=== PATIENT | female | born 1995 | race Two or more races ===

== ENCOUNTER 2019-08-24 11:23 | Inpatient (IN) | payer SELFPAY ==
[~2019-08-24] VITALS: Ht 170.2 cm; Wt 96.0 kg
[2019-08-24] MEDS ORDERED: IV NORMAL SALINE 1000ML BAG 1,000 ML IV SCH (11:43)
[2019-08-24] MEDS ORDERED: fentaNYL PF VIAL 100 MCG/2 ML VIAL IVP ONE (11:45)
[2019-08-24] MEDS ORDERED: ACETAMINOPHEN 500 MG TABLET PO ONE (11:45)
[2019-08-24] MEDS ORDERED: ONDANSETRON PF 4 MG/2 ML VIAL. IVP ONE (11:45)
--- NOTE | 2019-08-24 11:46 | PHYS DOC ---
General Adult EDM: Chief Complaint: FEVER HPI: HPI: Patient is a 23 year old female who presents with 2 days of nausea, vomiting, body aches, fever and shortness of air. She does have a low-grade fever of 100.1 upon arrival. She states she cannot keep anything down. She states she took DayQuil early this morning. She rates her pain generalized 5 out of 10. Patient also has a headache. When looking in the back of her throat upon exam she has yeast under her tongue. She states she is diabetic and has not been taking medications because she does not have insurance. Review of Systems: Review of Systems: Constitutional: fever or chills. [] Respiratory: Denies cough. +shortness of breath. [] GI: abdominal pain, nausea, vomiting, denies bloody stools. +diarrhea. [] Musculoskeletal: Bodyaches. Denies back pain or joint pain. [] Neurologic: headache, denies focal weakness or sensory changes. [] Heart Score: Risk Factors: Risk Factors: DM, Current or recent (<one month) smoker, HTN, HLP, family history of CAD, obesity. Risk Scores: Score 0 - 3: 2.5% MACE over next 6 weeks - Discharge Home Score 4 - 6: 20.3% MACE over next 6 weeks - Admit for Clinical Observation Score 7 - 10: 72.7% MACE over next 6 weeks - Early Invasive Strategies Allergies: Allergies: Allergies Coded Allergies Type Severity Reaction Last Updated Verified No Known Drug Allergies 08/24/19 No Physical Exam: PE: Constitutional: Well developed, well nourished, no acute distress, non-toxic appearance. [] HENT: Normocephalic, atraumatic, bilateral external ears normal, oropharynx moist, no oral exudates, nose normal. Yeast on tongue. [] Eyes: PERRLA, EOMI, conjunctiva normal, no discharge. [] Neck: Normal range of motion, no tenderness, supple, no stridor. [] Cardiovascular:Heart rate regular rhythm, no murmur [] Lungs & Thorax: Bilateral breath sounds clear to auscultation [] Abdomen: Bowel sounds normal, soft, Left upper tenderness, no masses, no pulsatile masses. [] Skin: Warm, dry, no erythema, no rash. [] Back: No tenderness, no CVA tenderness. [] Extremities: No tenderness, no cyanosis, no clubbing, ROM intact, no edema. [] Neurologic: Alert and oriented X 3, normal motor function, normal sensory function, no focal deficits noted. [] Psychologic: Affect normal, judgement normal, mood normal. [] EKG: EKG: Sinus tachycardia and no STEMI read by Dr. Hi at 1154 [] Radiology/Procedures: Radiology/Procedures: [] Impression: [place] [address] IMAGING REPORT Signed PATIENT: CARLOS JENKINS ACCOUNT: [id number] : 1995 LOCATION: ER AGE: 23 SEX: F EXAM STATUS: REG ER ORD. PHYSICIAN: ELEONORA DINH APRN REASON: soa PROCEDURE: PORTABLE CHEST 1V PORTABLE CHEST 1V History: Reason: soa / Spl. Instructions: / History: Comparison: None. Findings: No consolidation or pleural effusion. Normal heart size. No pneumothorax. Impression: 1. No acute cardiopulmonary process. Electronically signed by: Julian Pierce DO (08/24/2019 12:53 PM) [id number] DICTATED and SIGNED BY: JULIAN PIERCE DO DATE: 08/24/[address] [address] IMAGING REPORT Signed PATIENT: CARLOS JENKINS ACCOUNT: [id number] : 1995 LOCATION: ER AGE: 23 SEX: F EXAM STATUS: REG ER ORD. PHYSICIAN: ELEONORA DINH APRN REASON: abdominal tenderness, vomiting, diarrhea, fever PROCEDURE: CT ABD PELV W/ IV CONTRST ONLY CT scan of the abdomen and pelvis with contrast 08/24/2019 CLINICAL HISTORY: Abdominal tenderness, vomiting, diarrhea and fever. TECHNIQUE: After the intravenous administration of 75 cc of Omnipaque 300, contiguous, 5 mm axial sections were obtained through the abdomen and pelvis. One or more of the following individualized dose reduction techniques were utilized for this study: 1. Automated exposure control. 2. Adjustment of the mA and/or kV according to patient size. 3. Use of iterative reconstruction technique. FINDINGS: Images through the lung bases demonstrate minimal dependent subsegmental atelectasis bilaterally. The liver is mildly enlarged measuring 24 cm in length. Decreased attenuation of the liver parenchyma is seen consistent with fatty infiltration. The spleen, pancreas, adrenal glands and kidneys are within normal limits. The abdominal aorta tapers normally. The gallbladder slightly contracted. No free fluid or free air is seen within the abdomen. There is no evidence of bowel obstruction. Images through the pelvis demonstrate the urinary bladder distended with urine. An oval-shaped cystic mass is seen which appears to extend superiorly from the expected location of the right adnexa. This measures 12.2 x 11.1 x 9.2 cm in transverse, craniocaudal and AP dimensions. This may represent a ovarian cyst. No free fluid is seen. Minimal S-shaped curvature of the thoracolumbar spine is seen. IMPRESSION: 12.2 cm cystic mass is seen within the pelvis which appears to extend superiorly from the expected location of the right adnexa. This may represent an ovarian cyst. Further evaluation by pelvic ultrasound is recommended. Electronically signed by: Geradr Flores MD (08/24/2019 1:53 PM) [id number] DICTATED and SIGNED BY: GERARD FLORES MD DATE: 08/24/19 8205 Course & Med Decision Making: Course & Med Decision Making Pertinent Labs and Imaging studies reviewed. (See chart for details) Left upper abdominal tenderness with palpation. Patient states she thinks is from all the vomiting she is been doing. She states she cannot keep anything down. Alert and oriented. Speaks in full clear sentences. Ambulatory with a steady gait. No extremity edema. Lungs are clear to auscultation in all lobes. Throat is pink without exudates or swelling. Patient has had a tonsillectomy. Denies dysuria, cough, numbness or tingling, dizziness, LOC, chest pain, vision changes, focal weakness. COVID-19 CRITERIA: The patient was evaluated during the global COVID-19 pandemic, and that diagnosis was suspected/considered upon their initial presentation. Their evaluation, treatment and testing was consistent with current guidelines for patients who present with complaints or symptoms that may be related to COVID-19. I spoke to Dr. romero about this patient for admission. Patient likely does not have COVID-19 but instead pyelonephritis. Chest x-ray shows no acute findings. Urinalysis shows infection. CT showed a pelvic cystic mass. Ultrasound is ordered. Patient received Rocephin in the ED. [] Dragon Disclaimer: Dragon Disclaimer: This electronic medical record was generated, in whole or in part, using a voice recognition dictation system. COVID-19 Patient Risks: Age 65 or older: No Sign of co-morbidity: Yes Exp to person + for COVID: No Exp to PUI: No Travel from affected area: No Lower respiratory symptoms: Yes Fever: Yes Other: No PPE Use: Full PPE with N95 mask or PAPR: Yes Departure Departure Impression: Primary Impression: Pyelonephritis Disposition: ADMITTED INPATIENT Admitting Physician: SHAYNA Condition: STABLE Justicifation of Admission Dx: Justifications for Admission: Justification of Admission Dx: N/A (PYELONEPHRITIS) ELEONORA DINH FOOD SAFETY AUDITOR Aug 24, 2019 11:46
[2019-08-24 12:09] LABS: BASO # 0.2 x10^3/uL (0.0-0.2); BASO % 1 % (0-3); EOS # 0.1 x10^3/uL (0.0-0.7); EOS % 0 % (0-3); HEMATOCRIT 34.6 % (36.0-47.0); HEMOGLOBIN 11.6 g/dL (12.0-15.5); LYMPH # 1.7 x10^3/uL (1.0-4.8); LYMPH % 11 % (24-48); MEAN CORPUSCULAR HEMOGLOBIN 27 pg (25-35); MEAN CORPUSCULAR HGB CONC 34 g/dL (31-37); MEAN CORPUSCULAR VOLUME 80 fL (79-100); MONO # 2.2 x10^3/uL (0.0-1.1); MONO % 14 % (0-9); NEUT # 11.3 x10^3/uL (1.8-7.7); NEUT % 74 % (31-73); PLATELET COUNT 166 x10^3/uL (140-400); RED BLOOD COUNT 4.32 x10^6/uL (3.50-5.40); RED CELL DISTRIBUTION WIDTH 13.9 % (11.5-14.5); WHITE BLOOD COUNT 15.4 x10^3/uL (4.0-11.0)
[2019-08-24 12:22] LABS: PROTHROMBIN TIME PATIENT 14.8 SEC (11.7-14.0)
[2019-08-24 12:26] LABS: CALCIUM 8.7 mg/dL (8.5-10.1); CREATININE 0.9 mg/dL (0.6-1.0); GFR 78.3; POTASSIUM 3.6 mmol/L (3.5-5.1)
[2019-08-24 12:32] LABS: ALBUMIN/GLOBULIN RATIO 0.6 (1.0-1.7); TOTAL BILIRUBIN 0.5 mg/dL (0.2-1.0); TOTAL PROTEIN 7.8 g/dL (6.4-8.2)
[2019-08-24 12:41] LABS: BILIRUBIN,URINE NEGATIVE (NEG); CLARITY,URINE CLEAR; COLOR,URINE YELLOW; NITRITE,URINE NEGATIVE (NEG); PROTEIN,URINE 100 mg/dL (NEG-TRACE); UROBILINOGEN,URINE 0.2 mg/dL (0.2 mg/dL)
[2019-08-24 12:49] LABS: BARBITURATES NEG (NEG); BENZODIAZEPINES NEG (NEG); CANNABINOIDS POS (NEG); COCAINE NEG (NEG); METHADONE NEG (NEG); OPIATES NEG (NEG); PHENCYCLIDINE NEG (NEG)
[2019-08-24 12:50] LABS: AMPHETAMINE/METHAMPHETAMINE NEG (NEG)
[2019-08-24 12:52] LABS: AMORPHOUS SEDIMENT,UR PRESENT /HPF; HYALINE CASTS, URINE OCCASIONAL /HPF; SQUAMOUS EPITHELIAL CELL,UR MOD /LPF
[2019-08-24 12:54] LABS: BACTERIA,URINE MODERATE /HPF (0-FEW); RBC,URINE OCC /HPF (0-2); WBC,URINE >40 /HPF (0-4)
--- NOTE | 2019-08-24 12:56 | RAD ---
PORTABLE CHEST 1V History: Reason: soa / Spl. Instructions: / History: Comparison: None. Findings: No consolidation or pleural effusion. Normal heart size. No pneumothorax. Impression: 1. No acute cardiopulmonary process. Electronically signed by: Julian Pierce DO (08/24/2019 12:53 PM) [id number]
[2019-08-24 13:00] LABS: % BANDS 7 % (0-9); % BASOS 1 % (0-3); % EOS 2 % (0-5); % LYMPHS 6 % (24-48); % MONOS 11 % (0-10); % SEGS 73 % (35-66); PLT ESTIMATE ADEQUATE (ADEQUATE)
[2019-08-24] MEDS ORDERED: IV NORMAL SALINE 1000ML BAG 1,000 ML IV ONE (13:00)
[2019-08-24] MEDS ORDERED: IOHEXOL 300 MG/ML 100ML VIAL. IV ONE (13:15)
[2019-08-24] MEDS ORDERED: KETOROLAC 30 MG/ML VIAL. IVP ONE (13:15)
[2019-08-24] MEDS ORDERED: cefTRIAXone IV Push 1 GM VIAL. IVP ONE (13:15)
[2019-08-24] MEDS ORDERED: CONTRAST GIVEN. MC PRN (13:30)
--- NOTE | 2019-08-24 13:56 | RAD ---
CT scan of the abdomen and pelvis with contrast 08/24/2019 CLINICAL HISTORY: Abdominal tenderness, vomiting, diarrhea and fever. TECHNIQUE: After the intravenous administration of 75 cc of Omnipaque 300, contiguous, 5 mm axial sections were obtained through the abdomen and pelvis. One or more of the following individualized dose reduction techniques were utilized for this study: 1. Automated exposure control. 2. Adjustment of the mA and/or kV according to patient size. 3. Use of iterative reconstruction technique. FINDINGS: Images through the lung bases demonstrate minimal dependent subsegmental atelectasis bilaterally. The liver is mildly enlarged measuring 24 cm in length. Decreased attenuation of the liver parenchyma is seen consistent with fatty infiltration. The spleen, pancreas, adrenal glands and kidneys are within normal limits. The abdominal aorta tapers normally. The gallbladder slightly contracted. No free fluid or free air is seen within the abdomen. There is no evidence of bowel obstruction. Images through the pelvis demonstrate the urinary bladder distended with urine. An oval-shaped cystic mass is seen which appears to extend superiorly from the expected location of the right adnexa. This measures 12.2 x 11.1 x 9.2 cm in transverse, craniocaudal and AP dimensions. This may represent a ovarian cyst. No free fluid is seen. Minimal S-shaped curvature of the thoracolumbar spine is seen. IMPRESSION: 12.2 cm cystic mass is seen within the pelvis which appears to extend superiorly from the expected location of the right adnexa. This may represent an ovarian cyst. Further evaluation by pelvic ultrasound is recommended. Electronically signed by: Gerard Flores MD (08/24/2019 1:53 PM) [id number]
[2019-08-24] MEDS ORDERED: fentaNYL PF VIAL 100 MCG/2 ML VIAL IV PRN (14:45)
--- NOTE | 2019-08-24 15:13 | RAD ---
PELVIS COMPLETE History: Abdominal pain. Reason: MASS FOUND ON CT / Spl. Instructions: / History: Comparison: CT August 24, 2019. Technique: Grayscale and color Doppler imaging of the pelvis was performed using transabdominal and transvaginal technique. Findings: The uterus measures 8.2 x 4.6 x 3.0 cm. Uterus has an unremarkable appearance. The endometrial stripe measures 4 mm. Right ovary measures 3.8 x 2.9 x 2.0 cm. Large right exophytic ovarian cyst measures 11.1 x 8.8 x 11.5 cm. Left ovary measures 3.2 x 1.8 x 2.1 cm. Normal Doppler flow to the ovaries. No adnexal masses are seen. IMPRESSION: 1. Large right ovarian simple appearing cyst. Recommend further imaging with MRI and/or surgical evaluation given size. Electronically signed by: Julian Pierce DO (08/24/2019 3:10 PM) [id number]
[2019-08-24] MEDS: IV NORMAL SALINE 1000ML BAG 1,000 ML IV SCH ×2 (15:17→23:43)
[2019-08-24] MEDS ORDERED: DEXTROSE 50% 25 GM / 50ML DISP.SYRIN. IV PRN (17:00)
[2019-08-24 17:05] VITALS: BP 149/95
--- NOTE | 2019-08-24 17:29 | PDOC1 ---
History and Physical Date of Admission Date of Admission DATE: 08/24/19 TIME: 17:20 Source Source: Chart review, Patient History of Present Illness History of Present Illness Ms Vidal, is a 23 year old female who presents with 2 days of nausea, vomiting, body aches, fever and shortness of air. She does have a low-grade fever of 100.1 upon arrival. She states she cannot keep anything down. She states she took DayQuil early this morning. She rates her pain generalized 5 out of 10. Patient also has a headache. When looking in the back of her throat upon exam she has yeast under her tongue. She states she is diabetic and has not been taking medications because she does not have insurance. Past Medical History Cardiovascular: No pertinent hx Pulmonary: No pertinent hx GI: No pertinent hx Heme/Onc: No pertinent hx Musculoskeletal: low back pain Rheumatologic: No pertinent hx Infectious disease: No pertinent hx Family History Family History: Diabetes Social History Smoke: No ALCOHOL: none Drugs: None Current Medications Current Medications Current Medications Sodium Chloride 1,000 ml @ 1,000 mls/hr Q1H IV Last administered on 08/24/19at 12:06; Start 08/24/19 at 11:43; Stop 08/24/19 at 12:42; Status DC Fentanyl Citrate (Fentanyl 2ml Vial) 50 mcg 1X ONCE IVP Last administered on 08/24/19at 12:07; Start 08/24/19 at 11:45; Stop 08/24/19 at 11:48; Status DC Ondansetron HCl (Zofran) 4 mg 1X ONCE IVP Last administered on 08/24/19at 12:06; Start 08/24/19 at 11:45; Stop 08/24/19 at 11:48; Status DC Acetaminophen (Tylenol) 1,000 mg 1X ONCE PO Last administered on 08/24/19at 12:07; Start 08/24/19 at 11:45; Stop 08/24/19 at 11:48; Status DC Sodium Chloride 1,000 ml @ 1,000 mls/hr 1X ONCE IV Last administered on 08/24/19at 12:57; Start 08/24/19 at 13:00; Stop 08/24/19 at 13:59; Status DC Ceftriaxone Sodium (Rocephin) 1 gm 1X ONCE IVP Last administered on 08/24/19at 13:18; Start 08/24/19 at 13:15; Stop 08/24/19 at 13:16; Status DC Ketorolac Tromethamine (Toradol 30mg Vial) 30 mg 1X ONCE IVP Last administered on 08/24/19at 13:18; Start 08/24/19 at 13:15; Stop 08/24/19 at 13:16; Status DC Iohexol (Omnipaque 300 Mg/ml) 100 ml 1X ONCE IV Last administered on 08/24/19at 13:34; Start 08/24/19 at 13:15; Stop 08/24/19 at 13:16; Status DC Info (CONTRAST GIVEN -- Rx MONITORING) 1 each PRN DAILY PRN MC SEE COMMENTS; Start 08/24/19 at 13:30; Stop 08/26/19 at 13:29 Ondansetron HCl (Zofran) 4 mg PRN Q8HRS PRN IV NAUSEA/VOMITING; Start 08/24/19 at 14:45; Stop 08/25/19 at 14:44 Fentanyl Citrate (Fentanyl 2ml Vial) 50 mcg PRN Q1HR PRN IV PAIN; Start 08/24/19 at 14:45; Stop 08/25/19 at 14:44 Sodium Chloride 1,000 ml @ 125 mls/hr Q8H IV Last administered on 08/24/19at 15:17; Start 08/24/19 at 14:45; Stop 08/25/19 at 14:44 Acetaminophen (Tylenol) 650 mg PRN Q4HRS PRN PO FEVER > 100.3'F; Start 08/24/19 at 14:45; Stop 08/25/19 at 14:44 Insulin Human Lispro (HumaLOG) 0-7 UNITS TIDWMEALS SQ ; Start 08/24/19 at 17:00 Dextrose (Dextrose 50%-Water Syringe) 12.5 gm PRN Q15MIN PRN IV SEE COMMENTS; Start 08/24/19 at 17:00 Allergies Allergies: Coded Allergies: No Known Drug Allergies (Unverified , 08/24/19) ROS General: No: Chills, Night Sweats, Fatigue, Malaise, Appetite, Other PSYCHOLOGICAL ROS: No: Anxiety, Behavioral Disorder, Concentration difficultie, Decreased libido, Depression, Disorientation, Hallucinations, Hostility, Irritablity, Memory difficulties, Mood Swings, Obsessive thoughts, Physical abuse, Sexual abuse, Sleep disturbances, Suicidal ideation, Other Eyes: No Blurry vision, No Decreased vision, No Double vision, No Dry eyes, No Excessive tearing, No Eye Pain, No Itchy Eyes, No Loss of vision, No Photophobia, No Scotomata, No Uses contacts, No Uses glasses, No Other HEENT: No: Heacaches, Visual Changes, Hearing change, Nasal congestion, Nasal discharge, Oral lesions, Sinus pain, Sore Throat, Epistaxis, Sneezing, Snoring, Tinnitus, Vertigo, Vocal changes, Other Respiratory: No: Cough, Hemoptysis, Orthopnea, Pleuritic Pain, Shortness of breath, SOB with excertion, Sputum Changes, Stridor, Tachypnea, Wheezing, Other Cardiovascular: No Chest Pain, No Palpitations, No Orthopnea, No Paroxysmal Noc. Dyspnea, No Edema, No Lt Headedness, No Other Gastrointestinal: Yes Nausea, Yes Abdominal Pain; No Vomiting, No Diarrhea, No Constipation, No Melena, No Hematochezia, No Other Genitourinary: YES Frequency, YES Urgency, YES Pain, YES Flank Pain; No Dysuria, No Incontinence, No Hematuria, No Retention, No Discharge, No Other, No , No , No , No , No , No , No Musculoskeletal: Yes Joint Stiffness; No Gait Disturbance, No Joint Pain, No Joint Swelling, No Muscle Pain, No Muscular Weakness, No Pain In:, No Swelling In:, No Other Neurological: No Behavorial Changes, No Bowel/Bladder ControlChng, No Confusion, No Dizziness, No Gait Disturbance, No Headaches, No Impaired Coord/balance, No Memory Loss, No Numbness/Tingling, No Seizures, No Speech Problems, No Tremors, No Visual Changes, No Weakness, No Other Skin: No Dry Skin, No Eczema, No Hair Changes, No Lumps, No Mole Changes, No Mottling, No Nail Changes, No Pruritus, No Rash, No Skin Lesion Changes, No Other, No Acne Physical Exam General: Alert, No acute distress HEENT: PERRLA Lungs: Clear to auscultation, Normal air movement Heart: S1S2, RRR Abdomen: Normal bowel sounds, Soft, No tenderness Extremities: No cyanosis, No edema Skin: No rashes, No significant lesion Neuro: Normal speech, Normal tone Psych/Mental Status: Mental status NL, Mood NL Vitals Vitals Vital Signs Date Time Temp Pulse Resp B/P (MAP) Pulse Ox O2 Delivery O2 Flow Rate FiO2 08/24/19 16:31 100 20 137/87 (104) 99 Room Air 08/24/19 13:00 99.4 99.4 Labs Labs Laboratory Tests Test 08/24/19 11:58 08/24/19 12:00 08/24/19 12:09 White Blood Count 15.4 x10^3/uL (4.0-11.0) Red Blood Count 4.32 x10^6/uL (3.50-5.40) Hemoglobin 11.6 g/dL (12.0-15.5) Hematocrit 34.6 % (36.0-47.0) Mean Corpuscular Volume 80 fL (79-100) Mean Corpuscular Hemoglobin 27 pg (25-35) Mean Corpuscular Hemoglobin Concent 34 g/dL (31-37) Red Cell Distribution Width 13.9 % (11.5-14.5) Platelet Count 166 x10^3/uL (140-400) Neutrophils (%) (Auto) 74 % (31-73) Lymphocytes (%) (Auto) 11 % (24-48) Monocytes (%) (Auto) 14 % (0-9) Eosinophils (%) (Auto) 0 % (0-3) Basophils (%) (Auto) 1 % (0-3) Neutrophils # (Auto) 11.3 x10^3/uL (1.8-7.7) Lymphocytes # (Auto) 1.7 x10^3/uL (1.0-4.8) Monocytes # (Auto) 2.2 x10^3/uL (0.0-1.1) Eosinophils # (Auto) 0.1 x10^3/uL (0.0-0.7) Basophils # (Auto) 0.2 x10^3/uL (0.0-0.2) Segmented Neutrophils % 73 % (35-66) Band Neutrophils % 7 % (0-9) Lymphocytes % 6 % (24-48) Monocytes % 11 % (0-10) Eosinophils % 2 % (0-5) Basophils % 1 % (0-3) Platelet Estimate Adequate (ADEQUATE) Prothrombin Time 14.8 SEC (11.7-14.0) Prothromb Time International Ratio 1.2 (0.8-1.1) Sodium Level 131 mmol/L (136-145) Potassium Level 3.6 mmol/L (3.5-5.1) Chloride Level 96 mmol/L (98-107) Carbon Dioxide Level 22 mmol/L (21-32) Anion Gap 13 (6-14) Blood Urea Nitrogen 5 mg/dL (7-20) Creatinine 0.9 mg/dL (0.6-1.0) Estimated GFR (Cockcroft-Gault) 78.3 BUN/Creatinine Ratio 6 (6-20) Glucose Level 311 mg/dL (70-99) Lactic Acid Level 1.0 mmol/L (0.4-2.0) Calcium Level 8.7 mg/dL (8.5-10.1) Total Bilirubin 0.5 mg/dL (0.2-1.0) Aspartate Amino Transf (AST/SGOT) 15 U/L (15-37) Alanine Aminotransferase (ALT/SGPT) 29 U/L (14-59) Alkaline Phosphatase 55 U/L (46-116) Troponin I Quantitative < 0.017 ng/mL (0.000-0.055) Total Protein 7.8 g/dL (6.4-8.2) Albumin 3.0 g/dL (3.4-5.0) Albumin/Globulin Ratio 0.6 (1.0-1.7) Lipase 71 U/L (73-393) Acetone Level Neg (NEG) Urine Collection Type Unknown Urine Color Yellow Urine Clarity Clear Urine pH 6.0 (<5.0-8.0) Urine Specific [place] 1.025 (1.000-1.030) Urine Protein 100 mg/dL (NEG-TRACE) Urine Glucose (UA) >=1000 mg/dL (NEG) Urine Ketones (Stick) 40 mg/dL (NEG) Urine Blood Negative (NEG) Urine Nitrite Negative (NEG) Urine Bilirubin Negative (NEG) Urine Urobilinogen Dipstick 0.2 mg/dL (0.2 mg/dL) Urine Leukocyte Esterase Small (NEG) Urine RBC Occ /HPF (0-2) Urine WBC >40 /HPF (0-4) Urine Squamous Epithelial Cells Mod /LPF Urine Amorphous Sediment Present /HPF Urine Bacteria Moderate /HPF (0-FEW) Urine Hyaline Casts Occasional /HPF Urine Opiates Screen Neg (NEG) Urine Methadone Screen Neg (NEG) Urine Barbiturates Neg (NEG) Urine Phencyclidine Screen Neg (NEG) Urine Amphetamine/Methamphetamine Neg (NEG) Urine Benzodiazepines Screen Neg (NEG) Urine Cocaine Screen Neg (NEG) Urine Cannabinoids Screen Pos (NEG) Urine Ethyl Alcohol Neg (NEG) Bedside Urine HCG, Qualitative Hcg negative (Negative) Laboratory Tests Test 08/24/19 11:58 08/24/19 12:00 08/24/19 12:09 White Blood Count 15.4 x10^3/uL (4.0-11.0) Red Blood Count 4.32 x10^6/uL (3.50-5.40) Hemoglobin 11.6 g/dL (12.0-15.5) Hematocrit 34.6 % (36.0-47.0) Mean Corpuscular Volume 80 fL (79-100) Mean Corpuscular Hemoglobin 27 pg (25-35) Mean Corpuscular Hemoglobin Concent 34 g/dL (31-37) Red Cell Distribution Width 13.9 % (11.5-14.5) Platelet Count 166 x10^3/uL (140-400) Neutrophils (%) (Auto) 74 % (31-73) Lymphocytes (%) (Auto) 11 % (24-48) Monocytes (%) (Auto) 14 % (0-9) Eosinophils (%) (Auto) 0 % (0-3) Basophils (%) (Auto) 1 % (0-3) Neutrophils # (Auto) 11.3 x10^3/uL (1.8-7.7) Lymphocytes # (Auto) 1.7 x10^3/uL (1.0-4.8) Monocytes # (Auto) 2.2 x10^3/uL (0.0-1.1) Eosinophils # (Auto) 0.1 x10^3/uL (0.0-0.7) Basophils # (Auto) 0.2 x10^3/uL (0.0-0.2) Segmented Neutrophils % 73 % (35-66) Band Neutrophils % 7 % (0-9) Lymphocytes % 6 % (24-48) Monocytes % 11 % (0-10) Eosinophils % 2 % (0-5) Basophils % 1 % (0-3) Platelet Estimate Adequate (ADEQUATE) Prothrombin Time 14.8 SEC (11.7-14.0) Prothromb Time International Ratio 1.2 (0.8-1.1) Sodium Level 131 mmol/L (136-145) Potassium Level 3.6 mmol/L (3.5-5.1) Chloride Level 96 mmol/L (98-107) Carbon Dioxide Level 22 mmol/L (21-32) Anion Gap 13 (6-14) Blood Urea Nitrogen 5 mg/dL (7-20) Creatinine 0.9 mg/dL (0.6-1.0) Estimated GFR (Cockcroft-Gault) 78.3 BUN/Creatinine Ratio 6 (6-20) Glucose Level 311 mg/dL (70-99) Lactic Acid Level 1.0 mmol/L (0.4-2.0) Calcium Level 8.7 mg/dL (8.5-10.1) Total Bilirubin 0.5 mg/dL (0.2-1.0) Aspartate Amino Transf (AST/SGOT) 15 U/L (15-37) Alanine Aminotransferase (ALT/SGPT) 29 U/L (14-59) Alkaline Phosphatase 55 U/L (46-116) Troponin I Quantitative < 0.017 ng/mL (0.000-0.055) Total Protein 7.8 g/dL (6.4-8.2) Albumin 3.0 g/dL (3.4-5.0) Albumin/Globulin Ratio 0.6 (1.0-1.7) Lipase 71 U/L (73-393) Acetone Level Neg (NEG) Urine Collection Type Unknown Urine Color Yellow Urine Clarity Clear Urine pH 6.0 (<5.0-8.0) Urine Specific [place] 1.025 (1.000-1.030) Urine Protein 100 mg/dL (NEG-TRACE) Urine Glucose (UA) >=1000 mg/dL (NEG) Urine Ketones (Stick) 40 mg/dL (NEG) Urine Blood Negative (NEG) Urine Nitrite Negative (NEG) Urine Bilirubin Negative (NEG) Urine Urobilinogen Dipstick 0.2 mg/dL (0.2 mg/dL) Urine Leukocyte Esterase Small (NEG) Urine RBC Occ /HPF (0-2) Urine WBC >40 /HPF (0-4) Urine Squamous Epithelial Cells Mod /LPF Urine Amorphous Sediment Present /HPF Urine Bacteria Moderate /HPF (0-FEW) Urine Hyaline Casts Occasional /HPF Urine Opiates Screen Neg (NEG) Urine Methadone Screen Neg (NEG) Urine Barbiturates Neg (NEG) Urine Phencyclidine Screen Neg (NEG) Urine Amphetamine/Methamphetamine Neg (NEG) Urine Benzodiazepines Screen Neg (NEG) Urine Cocaine Screen Neg (NEG) Urine Cannabinoids Screen Pos (NEG) Urine Ethyl Alcohol Neg (NEG) Bedside Urine HCG, Qualitative Hcg negative (Negative) VTE Prophylaxis Ordered VTE Prophylaxis Devices: No VTE Pharmacological Prophylaxi: Yes Assessment/Plan Assessment/Plan sepsis pyelonephritis, obese, Dm2, poor control, check A1c, give insulin Justicifation of Admission Dx: Justifications for Admission: Justification of Admission Dx: Yes Sepsis: Infection Comments: sepsis, UTI TERESA VITAL MD Aug 24, 2019 17:29
[2019-08-24] MEDS: ONDANSETRON PF 4 MG/2 ML VIAL. IV PRN (17:50)
[2019-08-24] MEDS: fentaNYL PF VIAL 100 MCG/2 ML VIAL IVP PRN (17:50)
[2019-08-24] MEDS: ENOXAPARIN 40 MG/0.4 ML SYRINGE. SQ SCH (17:57)
[2019-08-24] MEDS: INSULIN LISPRO 300 UNITS/3 ML VIAL. SQ SCH (18:02)
[2019-08-24 19:00] VITALS: BP 132/85
[2019-08-24] MEDS: ACETAMINOPHEN 325 MG TABLET. PO PRN (20:07)
--- NOTE | 2019-08-24 20:40 | NUR ---
Positive sepsis screen. Results called to ICU. Orders received.
[2019-08-24] MEDS: INSULIN GLARGINE SYRINGE. SQ SCH (21:46)
--- NOTE | 2019-08-24 22:35 | NUR ---
Lactic acid 1.0. No new orders at this time related to positive sepsis screen. Will continue to monitor.
[2019-08-24 23:00] VITALS: BP 119/69
[2019-08-25 03:00] VITALS: BP 138/75
[2019-08-25] MEDS: ONDANSETRON PF 4 MG/2 ML VIAL. IV PRN (03:47)
[2019-08-25] MEDS: ACETAMINOPHEN 325 MG TABLET. PO PRN (03:47)
[2019-08-25 04:31] LABS: BASO # 0.1 x10^3/uL (0.0-0.2); BASO % 1 % (0-3); EOS # 0.1 x10^3/uL (0.0-0.7); EOS % 1 % (0-3); HEMATOCRIT 31.8 % (36.0-47.0); HEMOGLOBIN 10.6 g/dL (12.0-15.5); LYMPH # 1.4 x10^3/uL (1.0-4.8); LYMPH % 14 % (24-48); MEAN CORPUSCULAR HEMOGLOBIN 27 pg (25-35); MEAN CORPUSCULAR HGB CONC 33 g/dL (31-37); MEAN CORPUSCULAR VOLUME 81 fL (79-100); MONO # 1.4 x10^3/uL (0.0-1.1); MONO % 14 % (0-9); NEUT # 6.8 x10^3/uL (1.8-7.7); NEUT % 70 % (31-73); PLATELET COUNT 156 x10^3/uL (140-400); RED BLOOD COUNT 3.92 x10^6/uL (3.50-5.40); RED CELL DISTRIBUTION WIDTH 13.4 % (11.5-14.5); WHITE BLOOD COUNT 9.6 x10^3/uL (4.0-11.0)
[2019-08-25 05:00] LABS: ALBUMIN 2.5 g/dL (3.4-5.0); ALBUMIN/GLOBULIN RATIO 0.6 (1.0-1.7); CALCIUM 8.1 mg/dL (8.5-10.1); CREATININE 0.8 mg/dL (0.6-1.0); GFR 89.7; POTASSIUM 3.4 mmol/L (3.5-5.1); TOTAL BILIRUBIN 0.3 mg/dL (0.2-1.0); TOTAL PROTEIN 6.8 g/dL (6.4-8.2)
--- NOTE | 2019-08-25 06:52 | EKG ---
[facility] [address] [place] [address] Test Date: 2019-08-24 Test Time: 11:54:15 Pat Name: CARLOS JENKINS Department: Room: 420 Gender: F Care Taker: RANDY : 1995 Requested By: ELEONORA DINH Order Number: [id number] Reading MD: Anselmo Chakraborty Measurements Intervals [place] Rate: 107 P: 31 AL: 150 QRS: 39 QRSD: 92 T: 18 QT: 316 QTc: 421 Interpretive Statements SINUS TACHYCARDIA Electronically Signed On 08-28-2019 16:00:54 CDT by Anselmo Chakraborty
[2019-08-25 07:00] VITALS: BP 119/71
[2019-08-25] MEDS: IV NORMAL SALINE 1000ML BAG 1,000 ML IV SCH (08:22)
[2019-08-25] MEDS: INSULIN LISPRO 300 UNITS/3 ML VIAL. SQ SCH ×3 (08:26→16:50)
--- NOTE | 2019-08-25 09:44 | NUR ---
SW following. Discussed with RN, pt from home, [facility] following for self pay status. Abx, fluids, fever. SW will continue to follow for any discharge planning needs.
[2019-08-25] MEDS: fentaNYL PF VIAL 100 MCG/2 ML VIAL IVP PRN (10:10)
[2019-08-25 10:32] VITALS: BP 131/88
[2019-08-25] MEDS ORDERED: POTASSIUM CHLORIDE 20 MEQ TABLET.ER. PO ONE (12:30)
[2019-08-25] MEDS ORDERED: BUTALB/APAP/CAFEIN 50/325/40MG TABLET. PO ONE (12:45)
[2019-08-25] MEDS ORDERED: cefTRIAXone IV Push 1 GM VIAL. IVP SCH (13:00)
[2019-08-25] MEDS: LIDOCAINE (700MG/PATCH) PATCH. TD SCH (13:21)
--- NOTE | 2019-08-25 14:22 | PDOC ---
PROGRESS NOTES Chief Complaint Chief Complaint sepsis pyelonephritis, obese, Dm2, poor control, check A1c, give insulin headache History of Present Illness History of Present Illness lidoder m pack to neck fioricet, july DC if she feels well Vitals Vitals Vital Signs Date Time Temp Pulse Resp B/P (MAP) Pulse Ox O2 Delivery O2 Flow Rate FiO2 08/25/19 11:05 Room Air 08/25/19 10:32 99.2 105 18 131/88 (102) 99 99.2 Physical Exam General: Alert, No acute distress Abdomen: Normal bowel sounds, Soft, No tenderness Extremities: No cyanosis, No edema Skin: No rashes, No significant lesion Labs LABS Laboratory Tests Test 08/24/19 17:46 08/24/19 20:39 08/24/19 20:55 08/25/19 03:55 Glucose (Fingerstick) 219 mg/dL (70-99) 216 mg/dL (70-99) Lactic Acid Level 1.0 mmol/L (0.4-2.0) White Blood Count 9.6 x10^3/uL (4.0-11.0) Red Blood Count 3.92 x10^6/uL (3.50-5.40) Hemoglobin 10.6 g/dL (12.0-15.5) Hematocrit 31.8 % (36.0-47.0) Mean Corpuscular Volume 81 fL (79-100) Mean Corpuscular Hemoglobin 27 pg (25-35) Mean Corpuscular Hemoglobin Concent 33 g/dL (31-37) Red Cell Distribution Width 13.4 % (11.5-14.5) Platelet Count 156 x10^3/uL (140-400) Neutrophils (%) (Auto) 70 % (31-73) Lymphocytes (%) (Auto) 14 % (24-48) Monocytes (%) (Auto) 14 % (0-9) Eosinophils (%) (Auto) 1 % (0-3) Basophils (%) (Auto) 1 % (0-3) Neutrophils # (Auto) 6.8 x10^3/uL (1.8-7.7) Lymphocytes # (Auto) 1.4 x10^3/uL (1.0-4.8) Monocytes # (Auto) 1.4 x10^3/uL (0.0-1.1) Eosinophils # (Auto) 0.1 x10^3/uL (0.0-0.7) Basophils # (Auto) 0.1 x10^3/uL (0.0-0.2) Sodium Level 137 mmol/L (136-145) Potassium Level 3.4 mmol/L (3.5-5.1) Chloride Level 101 mmol/L (98-107) Carbon Dioxide Level 24 mmol/L (21-32) Anion Gap 12 (6-14) Blood Urea Nitrogen 4 mg/dL (7-20) Creatinine 0.8 mg/dL (0.6-1.0) Estimated GFR (Cockcroft-Gault) 89.7 BUN/Creatinine Ratio 5 (6-20) Glucose Level 204 mg/dL (70-99) Calcium Level 8.1 mg/dL (8.5-10.1) Total Bilirubin 0.3 mg/dL (0.2-1.0) Aspartate Amino Transf (AST/SGOT) 15 U/L (15-37) Alanine Aminotransferase (ALT/SGPT) 23 U/L (14-59) Alkaline Phosphatase 51 U/L (46-116) Total Protein 6.8 g/dL (6.4-8.2) Albumin 2.5 g/dL (3.4-5.0) Albumin/Globulin Ratio 0.6 (1.0-1.7) Test 08/25/19 07:03 08/25/19 11:14 Glucose (Fingerstick) 183 mg/dL (70-99) 172 mg/dL (70-99) Assessment and Plan Assessmemt and Plan Problems Medical Problems: (1) Pyelonephritis Status: Acute Comment Review of Relevant I have reviewed the following items luisa (where applicable) has been applied. Labs Laboratory Tests Test 08/24/19 11:58 08/24/19 12:00 08/24/19 12:09 08/24/19 17:46 White Blood Count 15.4 x10^3/uL (4.0-11.0) Red Blood Count 4.32 x10^6/uL (3.50-5.40) Hemoglobin 11.6 g/dL (12.0-15.5) Hematocrit 34.6 % (36.0-47.0) Mean Corpuscular Volume 80 fL (79-100) Mean Corpuscular Hemoglobin 27 pg (25-35) Mean Corpuscular Hemoglobin Concent 34 g/dL (31-37) Red Cell Distribution Width 13.9 % (11.5-14.5) Platelet Count 166 x10^3/uL (140-400) Neutrophils (%) (Auto) 74 % (31-73) Lymphocytes (%) (Auto) 11 % (24-48) Monocytes (%) (Auto) 14 % (0-9) Eosinophils (%) (Auto) 0 % (0-3) Basophils (%) (Auto) 1 % (0-3) Neutrophils # (Auto) 11.3 x10^3/uL (1.8-7.7) Lymphocytes # (Auto) 1.7 x10^3/uL (1.0-4.8) Monocytes # (Auto) 2.2 x10^3/uL (0.0-1.1) Eosinophils # (Auto) 0.1 x10^3/uL (0.0-0.7) Basophils # (Auto) 0.2 x10^3/uL (0.0-0.2) Segmented Neutrophils % 73 % (35-66) Band Neutrophils % 7 % (0-9) Lymphocytes % 6 % (24-48) Monocytes % 11 % (0-10) Eosinophils % 2 % (0-5) Basophils % 1 % (0-3) Platelet Estimate Adequate (ADEQUATE) Prothrombin Time 14.8 SEC (11.7-14.0) Prothromb Time International Ratio 1.2 (0.8-1.1) Sodium Level 131 mmol/L (136-145) Potassium Level 3.6 mmol/L (3.5-5.1) Chloride Level 96 mmol/L (98-107) Carbon Dioxide Level 22 mmol/L (21-32) Anion Gap 13 (6-14) Blood Urea Nitrogen 5 mg/dL (7-20) Creatinine 0.9 mg/dL (0.6-1.0) Estimated GFR (Cockcroft-Gault) 78.3 BUN/Creatinine Ratio 6 (6-20) Glucose Level 311 mg/dL (70-99) Lactic Acid Level 1.0 mmol/L (0.4-2.0) Calcium Level 8.7 mg/dL (8.5-10.1) Total Bilirubin 0.5 mg/dL (0.2-1.0) Aspartate Amino Transf (AST/SGOT) 15 U/L (15-37) Alanine Aminotransferase (ALT/SGPT) 29 U/L (14-59) Alkaline Phosphatase 55 U/L (46-116) Troponin I Quantitative < 0.017 ng/mL (0.000-0.055) Total Protein 7.8 g/dL (6.4-8.2) Albumin 3.0 g/dL (3.4-5.0) Albumin/Globulin Ratio 0.6 (1.0-1.7) Lipase 71 U/L (73-393) Acetone Level Neg (NEG) Urine Collection Type Unknown Urine Color Yellow Urine Clarity Clear Urine pH 6.0 (<5.0-8.0) Urine Specific [place] 1.025 (1.000-1.030) Urine Protein 100 mg/dL (NEG-TRACE) Urine Glucose (UA) >=1000 mg/dL (NEG) Urine Ketones (Stick) 40 mg/dL (NEG) Urine Blood Negative (NEG) Urine Nitrite Negative (NEG) Urine Bilirubin Negative (NEG) Urine Urobilinogen Dipstick 0.2 mg/dL (0.2 mg/dL) Urine Leukocyte Esterase Small (NEG) Urine RBC Occ /HPF (0-2) Urine WBC >40 /HPF (0-4) Urine Squamous Epithelial Cells Mod /LPF Urine Amorphous Sediment Present /HPF Urine Bacteria Moderate /HPF (0-FEW) Urine Hyaline Casts Occasional /HPF Urine Opiates Screen Neg (NEG) Urine Methadone Screen Neg (NEG) Urine Barbiturates Neg (NEG) Urine Phencyclidine Screen Neg (NEG) Urine Amphetamine/Methamphetamine Neg (NEG) Urine Benzodiazepines Screen Neg (NEG) Urine Cocaine Screen Neg (NEG) Urine Cannabinoids Screen Pos (NEG) Urine Ethyl Alcohol Neg (NEG) Bedside Urine HCG, Qualitative Hcg negative (Negative) Glucose (Fingerstick) 219 mg/dL (70-99) Test 08/24/19 20:39 08/24/19 20:55 08/25/19 03:55 08/25/19 07:03 Glucose (Fingerstick) 216 mg/dL (70-99) 183 mg/dL (70-99) Lactic Acid Level 1.0 mmol/L (0.4-2.0) White Blood Count 9.6 x10^3/uL (4.0-11.0) Red Blood Count 3.92 x10^6/uL (3.50-5.40) Hemoglobin 10.6 g/dL (12.0-15.5) Hematocrit 31.8 % (36.0-47.0) Mean Corpuscular Volume 81 fL (79-100) Mean Corpuscular Hemoglobin 27 pg (25-35) Mean Corpuscular Hemoglobin Concent 33 g/dL (31-37) Red Cell Distribution Width 13.4 % (11.5-14.5) Platelet Count 156 x10^3/uL (140-400) Neutrophils (%) (Auto) 70 % (31-73) Lymphocytes (%) (Auto) 14 % (24-48) Monocytes (%) (Auto) 14 % (0-9) Eosinophils (%) (Auto) 1 % (0-3) Basophils (%) (Auto) 1 % (0-3) Neutrophils # (Auto) 6.8 x10^3/uL (1.8-7.7) Lymphocytes # (Auto) 1.4 x10^3/uL (1.0-4.8) Monocytes # (Auto) 1.4 x10^3/uL (0.0-1.1) Eosinophils # (Auto) 0.1 x10^3/uL (0.0-0.7) Basophils # (Auto) 0.1 x10^3/uL (0.0-0.2) Sodium Level 137 mmol/L (136-145) Potassium Level 3.4 mmol/L (3.5-5.1) Chloride Level 101 mmol/L (98-107) Carbon Dioxide Level 24 mmol/L (21-32) Anion Gap 12 (6-14) Blood Urea Nitrogen 4 mg/dL (7-20) Creatinine 0.8 mg/dL (0.6-1.0) Estimated GFR (Cockcroft-Gault) 89.7 BUN/Creatinine Ratio 5 (6-20) Glucose Level 204 mg/dL (70-99) Calcium Level 8.1 mg/dL (8.5-10.1) Total Bilirubin 0.3 mg/dL (0.2-1.0) Aspartate Amino Transf (AST/SGOT) 15 U/L (15-37) Alanine Aminotransferase (ALT/SGPT) 23 U/L (14-59) Alkaline Phosphatase 51 U/L (46-116) Total Protein 6.8 g/dL (6.4-8.2) Albumin 2.5 g/dL (3.4-5.0) Albumin/Globulin Ratio 0.6 (1.0-1.7) Test 08/25/19 11:14 Glucose (Fingerstick) 172 mg/dL (70-99) Laboratory Tests Test 08/24/19 17:46 08/24/19 20:39 08/24/19 20:55 08/25/19 03:55 Glucose (Fingerstick) 219 mg/dL (70-99) 216 mg/dL (70-99) Lactic Acid Level 1.0 mmol/L (0.4-2.0) White Blood Count 9.6 x10^3/uL (4.0-11.0) Red Blood Count 3.92 x10^6/uL (3.50-5.40) Hemoglobin 10.6 g/dL (12.0-15.5) Hematocrit 31.8 % (36.0-47.0) Mean Corpuscular Volume 81 fL (79-100) Mean Corpuscular Hemoglobin 27 pg (25-35) Mean Corpuscular Hemoglobin Concent 33 g/dL (31-37) Red Cell Distribution Width 13.4 % (11.5-14.5) Platelet Count 156 x10^3/uL (140-400) Neutrophils (%) (Auto) 70 % (31-73) Lymphocytes (%) (Auto) 14 % (24-48) Monocytes (%) (Auto) 14 % (0-9) Eosinophils (%) (Auto) 1 % (0-3) Basophils (%) (Auto) 1 % (0-3) Neutrophils # (Auto) 6.8 x10^3/uL (1.8-7.7) Lymphocytes # (Auto) 1.4 x10^3/uL (1.0-4.8) Monocytes # (Auto) 1.4 x10^3/uL (0.0-1.1) Eosinophils # (Auto) 0.1 x10^3/uL (0.0-0.7) Basophils # (Auto) 0.1 x10^3/uL (0.0-0.2) Sodium Level 137 mmol/L (136-145) Potassium Level 3.4 mmol/L (3.5-5.1) Chloride Level 101 mmol/L (98-107) Carbon Dioxide Level 24 mmol/L (21-32) Anion Gap 12 (6-14) Blood Urea Nitrogen 4 mg/dL (7-20) Creatinine 0.8 mg/dL (0.6-1.0) Estimated GFR (Cockcroft-Gault) 89.7 BUN/Creatinine Ratio 5 (6-20) Glucose Level 204 mg/dL (70-99) Calcium Level 8.1 mg/dL (8.5-10.1) Total Bilirubin 0.3 mg/dL (0.2-1.0) Aspartate Amino Transf (AST/SGOT) 15 U/L (15-37) Alanine Aminotransferase (ALT/SGPT) 23 U/L (14-59) Alkaline Phosphatase 51 U/L (46-116) Total Protein 6.8 g/dL (6.4-8.2) Albumin 2.5 g/dL (3.4-5.0) Albumin/Globulin Ratio 0.6 (1.0-1.7) Test 08/25/19 07:03 08/25/19 11:14 Glucose (Fingerstick) 183 mg/dL (70-99) 172 mg/dL (70-99) Microbiology 08/24/19 Urine Culture - Preliminary, Resulted Medications Current Medications Sodium Chloride 1,000 ml @ 1,000 mls/hr Q1H IV Last administered on 08/24/19at 12:06; Start 08/24/19 at 11:43; Stop 08/24/19 at 12:42; Status DC Fentanyl Citrate (Fentanyl 2ml Vial) 50 mcg 1X ONCE IVP Last administered on 08/24/19at 12:07; Start 08/24/19 at 11:45; Stop 08/24/19 at 11:48; Status DC Ondansetron HCl (Zofran) 4 mg 1X ONCE IVP Last administered on 08/24/19at 12:06; Start 08/24/19 at 11:45; Stop 08/24/19 at 11:48; Status DC Acetaminophen (Tylenol) 1,000 mg 1X ONCE PO Last administered on 08/24/19at 12:07; Start 08/24/19 at 11:45; Stop 08/24/19 at 11:48; Status DC Sodium Chloride 1,000 ml @ 1,000 mls/hr 1X ONCE IV Last administered on 08/24/19at 12:57; Start 08/24/19 at 13:00; Stop 08/24/19 at 13:59; Status DC Ceftriaxone Sodium (Rocephin) 1 gm 1X ONCE IVP Last administered on 08/24/19at 13:18; Start 08/24/19 at 13:15; Stop 08/24/19 at 13:16; Status DC Ketorolac Tromethamine (Toradol 30mg Vial) 30 mg 1X ONCE IVP Last administered on 08/24/19at 13:18; Start 08/24/19 at 13:15; Stop 08/24/19 at 13:16; Status DC Iohexol (Omnipaque 300 Mg/ml) 100 ml 1X ONCE IV Last administered on 08/24/19at 13:34; Start 08/24/19 at 13:15; Stop 08/24/19 at 13:16; Status DC Info (CONTRAST GIVEN -- Rx MONITORING) 1 each PRN DAILY PRN MC SEE COMMENTS; Start 08/24/19 at 13:30; Stop 08/26/19 at 13:29 Ondansetron HCl (Zofran) 4 mg PRN Q8HRS PRN IV NAUSEA/VOMITING Last administered on 08/25/19at 03:47; Start 08/24/19 at 14:45; Stop 08/25/19 at 14:44 Fentanyl Citrate (Fentanyl 2ml Vial) 50 mcg PRN Q1HR PRN IV PAIN; Start 08/24/19 at 14:45; Stop 08/25/19 at 14:44 Sodium Chloride 1,000 ml @ 125 mls/hr Q8H IV Last administered on 08/25/19at 08:22; Start 08/24/19 at 14:45; Stop 08/25/19 at 14:44 Acetaminophen (Tylenol) 650 mg PRN Q4HRS PRN PO FEVER > 100.3'F Last administered on 08/25/19at 03:47; Start 08/24/19 at 14:45; Stop 08/25/19 at 14:44 Insulin Human Lispro (HumaLOG) 0-7 UNITS TIDWMEALS SQ Last administered on 08/25/19at 12:09; Start 08/24/19 at 17:00 Dextrose (Dextrose 50%-Water Syringe) 12.5 gm PRN Q15MIN PRN IV SEE COMMENTS; Start 08/24/19 at 17:00 Fentanyl Citrate (Fentanyl 2ml Vial) 50 mcg PRN Q2HR PRN IVP PAIN Last administered on 08/25/19at 10:10; Start 08/24/19 at 17:30 Oxycodone/ Acetaminophen (Percocet 5/325) 1 tab PRN Q4HRS PRN PO PAIN; Start 08/24/19 at 17:30 Ceftriaxone Sodium (Rocephin) 1 gm Q24H IVP Last administered on 08/25/19at 13:21; Start 08/25/19 at 13:00 Insulin Glargine (Lantus Syringe) 20 unit QHS SQ Last administered on 08/24/19at 21:46; Start 08/24/19 at 21:00 Enoxaparin Sodium (Lovenox 40mg Syringe) 40 mg Q24H SQ Last administered on 08/24/19at 17:57; Start 08/24/19 at 18:00 Potassium Chloride (Klor-Con) 40 meq 1X ONCE PO Last administered on 08/25/19at 13:21; Start 08/25/19 at 12:30; Stop 08/25/19 at 12:31; Status DC Lidocaine (Lidoderm) 1 patch DAILY TD Last administered on 08/25/19at 13:21; Start 08/25/19 at 12:45 Miscellaneous (Lidoderm Patch Removal) 1 ea QHS MC ; Start 08/25/19 at 21:00 Acetaminophen/ Butalbital/ Caffeine (Fioricet) 1 tab 1X ONCE PO Last adminis tered on 08/25/19at 13:20; Start 08/25/19 at 12:45; Stop 08/25/19 at 12:46; Status DC Active Scripts Active Reported No Known Medications Prior To Admisstion (Info) Each 1 Each DAILY Vitals/I & O Vital Sign - Last 24 Hours 08/24/19 08/24/19 08/24/19 08/24/19 14:31 15:31 16:31 17:05 Temp 99.4 99.4 Pulse 96 98 100 113 Resp 16 20 20 20 B/P (MAP) 124/76 (92) 133/76 (95) 137/87 (104) 149/95 (113) Pulse Ox 95 95 99 99 O2 Delivery Room Air Room Air Room Air 08/24/19 08/24/19 08/24/19 08/24/19 17:05 17:50 18:57 19:00 Temp 102.9 102.9 Pulse 121 Resp 18 B/P (MAP) 132/85 (101) Pulse Ox 99 O2 Delivery Room Air Room Air Room Air Room Air 08/24/19 08/24/19 08/24/19 08/25/19 19:45 21:30 23:00 03:00 Temp 102.7 100.5 98.7 102.7 100.5 98.7 Pulse 107 113 Resp 18 18 B/P (MAP) 119/69 (86) 138/75 (96) Pulse Ox 99 92 O2 Delivery Room Air Room Air Room Air 08/25/19 08/25/19 08/25/19 08/25/19 07:00 07:10 10:10 10:32 Temp 98.5 99.2 98.5 99.2 Pulse 98 105 Resp 18 18 B/P (MAP) 119/71 (87) 131/88 (102) Pulse Ox 95 99 O2 Delivery Room Air Room Air Room Air Room Air 08/25/19 11:05 O2 Delivery Room Air Intake and Output 08/24/19 08/24/19 08/25/19 15:00 23:00 07:00 Intake Total 2000 ml 3990 ml Balance 2000 ml 3990 ml TERESA VITAL MD Aug 25, 2019 14:22
[2019-08-25 14:43] VITALS: BP 129/70
--- NOTE | 2019-08-25 14:55 | NUR ---
Pt. states she feels a little bit better but not well enough to go home at this time. Will continue to monitor.
[2019-08-25] MEDS: oxyCODONE/APAP 5/325 1 TAB TABLET PO PRN ×2 (16:47→22:14)
--- NOTE | 2019-08-25 16:51 | NUR ---
Pt. c/o CONRAD not relieved by Fiorecet and does not feel well enough to d/c home tonight.
[2019-08-25] MEDS: ENOXAPARIN 40 MG/0.4 ML SYRINGE. SQ SCH (18:22)
[2019-08-25 19:00] VITALS: BP 135/89
[2019-08-25] MEDS: INSULIN GLARGINE SYRINGE. SQ SCH (21:00)
[2019-08-25] MEDS ORDERED: PATCH REMOVAL. MC SCH (21:00)
[2019-08-25] MEDS: LACTOBACILLUS RHAMNOSUS GG 1 CAPSULE. PO SCH (22:10)
[2019-08-25 23:00] VITALS: BP 134/83
[2019-08-26 01:08] LABS: HEMOGLOBIN A1C 8.8 % (4.8-5.6)
[2019-08-26 03:00] VITALS: BP 127/83
[2019-08-26] MEDS: oxyCODONE/APAP 5/325 1 TAB TABLET PO PRN ×2 (03:47→08:00)
[2019-08-26 07:15] VITALS: BP 116/79
[2019-08-26] MEDS: INSULIN LISPRO 300 UNITS/3 ML VIAL. SQ SCH (08:02)
[2019-08-26] MEDS: LACTOBACILLUS RHAMNOSUS GG 1 CAPSULE. PO SCH (09:44)
[2019-08-26] MEDS: LIDOCAINE (700MG/PATCH) PATCH. TD SCH (09:44)
[2019-08-26] MEDS ORDERED: METF500T16 PO (10:38)
[2019-08-26] MEDS ORDERED: CIPR250T30 PO (10:38)
[2019-08-26] MEDS ORDERED: BUTA1CAP27 PO (10:40)
--- NOTE | 2019-08-26 10:42 | PDOC3 ---
Discharge Summary Visit Information Date of Admission: Aug 24, 2019 Date of Discharge: Aug 26, 2019 Final Diagnosis sepsis pyelonephritis, obese, BMI 33 Dm2, A1c, 8.8 headache Problems Medical Problems: (1) Pyelonephritis Status: Acute Brief Hospital Course Allergies Allergies Coded Allergies Type Severity Reaction Last Updated Verified No Known Drug Allergies 08/24/19 No Vital Signs Vital Signs Date Time Temp Pulse Resp B/P (MAP) Pulse Ox O2 Delivery O2 Flow Rate FiO2 08/26/19 07:48 Room Air 08/26/19 07:15 98.2 89 16 116/79 (91) 98 98.2 Lab Results Laboratory Tests Test 08/24/19 11:58 08/24/19 12:00 08/24/19 12:09 08/24/19 17:46 White Blood Count 15.4 x10^3/uL (4.0-11.0) Red Blood Count 4.32 x10^6/uL (3.50-5.40) Hemoglobin 11.6 g/dL (12.0-15.5) Hematocrit 34.6 % (36.0-47.0) Mean Corpuscular Volume 80 fL (79-100) Mean Corpuscular Hemoglobin 27 pg (25-35) Mean Corpuscular Hemoglobin Concent 34 g/dL (31-37) Red Cell Distribution Width 13.9 % (11.5-14.5) Platelet Count 166 x10^3/uL (140-400) Neutrophils (%) (Auto) 74 % (31-73) Lymphocytes (%) (Auto) 11 % (24-48) Monocytes (%) (Auto) 14 % (0-9) Eosinophils (%) (Auto) 0 % (0-3) Basophils (%) (Auto) 1 % (0-3) Neutrophils # (Auto) 11.3 x10^3/uL (1.8-7.7) Lymphocytes # (Auto) 1.7 x10^3/uL (1.0-4.8) Monocytes # (Auto) 2.2 x10^3/uL (0.0-1.1) Eosinophils # (Auto) 0.1 x10^3/uL (0.0-0.7) Basophils # (Auto) 0.2 x10^3/uL (0.0-0.2) Segmented Neutrophils % 73 % (35-66) Band Neutrophils % 7 % (0-9) Lymphocytes % 6 % (24-48) Monocytes % 11 % (0-10) Eosinophils % 2 % (0-5) Basophils % 1 % (0-3) Platelet Estimate Adequate (ADEQUATE) Prothrombin Time 14.8 SEC (11.7-14.0) Prothromb Time International Ratio 1.2 (0.8-1.1) Sodium Level 131 mmol/L (136-145) Potassium Level 3.6 mmol/L (3.5-5.1) Chloride Level 96 mmol/L (98-107) Carbon Dioxide Level 22 mmol/L (21-32) Anion Gap 13 (6-14) Blood Urea Nitrogen 5 mg/dL (7-20) Creatinine 0.9 mg/dL (0.6-1.0) Estimated GFR (Cockcroft-Gault) 78.3 BUN/Creatinine Ratio 6 (6-20) Glucose Level 311 mg/dL (70-99) Lactic Acid Level 1.0 mmol/L (0.4-2.0) Calcium Level 8.7 mg/dL (8.5-10.1) Total Bilirubin 0.5 mg/dL (0.2-1.0) Aspartate Amino Transf (AST/SGOT) 15 U/L (15-37) Alanine Aminotransferase (ALT/SGPT) 29 U/L (14-59) Alkaline Phosphatase 55 U/L (46-116) Troponin I Quantitative < 0.017 ng/mL (0.000-0.055) Total Protein 7.8 g/dL (6.4-8.2) Albumin 3.0 g/dL (3.4-5.0) Albumin/Globulin Ratio 0.6 (1.0-1.7) Lipase 71 U/L (73-393) Acetone Level Neg (NEG) Urine Collection Type Unknown Urine Color Yellow Urine Clarity Clear Urine pH 6.0 (<5.0-8.0) Urine Specific [place] 1.025 (1.000-1.030) Urine Protein 100 mg/dL (NEG-TRACE) Urine Glucose (UA) >=1000 mg/dL (NEG) Urine Ketones (Stick) 40 mg/dL (NEG) Urine Blood Negative (NEG) Urine Nitrite Negative (NEG) Urine Bilirubin Negative (NEG) Urine Urobilinogen Dipstick 0.2 mg/dL (0.2 mg/dL) Urine Leukocyte Esterase Small (NEG) Urine RBC Occ /HPF (0-2) Urine WBC >40 /HPF (0-4) Urine Squamous Epithelial Cells Mod /LPF Urine Amorphous Sediment Present /HPF Urine Bacteria Moderate /HPF (0-FEW) Urine Hyaline Casts Occasional /HPF Urine Opiates Screen Neg (NEG) Urine Methadone Screen Neg (NEG) Urine Barbiturates Neg (NEG) Urine Phencyclidine Screen Neg (NEG) Urine Amphetamine/Methamphetamine Neg (NEG) Urine Benzodiazepines Screen Neg (NEG) Urine Cocaine Screen Neg (NEG) Urine Cannabinoids Screen Pos (NEG) Urine Ethyl Alcohol Neg (NEG) Bedside Urine HCG, Qualitative Hcg negative (Negative) Glucose (Fingerstick) 219 mg/dL (70-99) Test 08/24/19 20:39 08/24/19 20:55 08/25/19 03:55 08/25/19 07:03 Glucose (Fingerstick) 216 mg/dL (70-99) 183 mg/dL (70-99) Lactic Acid Level 1.0 mmol/L (0.4-2.0) White Blood Count 9.6 x10^3/uL (4.0-11.0) Red Blood Count 3.92 x10^6/uL (3.50-5.40) Hemoglobin 10.6 g/dL (12.0-15.5) Hematocrit 31.8 % (36.0-47.0) Mean Corpuscular Volume 81 fL (79-100) Mean Corpuscular Hemoglobin 27 pg (25-35) Mean Corpuscular Hemoglobin Concent 33 g/dL (31-37) Red Cell Distribution Width 13.4 % (11.5-14.5) Platelet Count 156 x10^3/uL (140-400) Neutrophils (%) (Auto) 70 % (31-73) Lymphocytes (%) (Auto) 14 % (24-48) Monocytes (%) (Auto) 14 % (0-9) Eosinophils (%) (Auto) 1 % (0-3) Basophils (%) (Auto) 1 % (0-3) Neutrophils # (Auto) 6.8 x10^3/uL (1.8-7.7) Lymphocytes # (Auto) 1.4 x10^3/uL (1.0-4.8) Monocytes # (Auto) 1.4 x10^3/uL (0.0-1.1) Eosinophils # (Auto) 0.1 x10^3/uL (0.0-0.7) Basophils # (Auto) 0.1 x10^3/uL (0.0-0.2) Sodium Level 137 mmol/L (136-145) Potassium Level 3.4 mmol/L (3.5-5.1) Chloride Level 101 mmol/L (98-107) Carbon Dioxide Level 24 mmol/L (21-32) Anion Gap 12 (6-14) Blood Urea Nitrogen 4 mg/dL (7-20) Creatinine 0.8 mg/dL (0.6-1.0) Estimated GFR (Cockcroft-Gault) 89.7 BUN/Creatinine Ratio 5 (6-20) Glucose Level 204 mg/dL (70-99) Hemoglobin A1c 8.8 % (4.8-5.6) Calcium Level 8.1 mg/dL (8.5-10.1) Total Bilirubin 0.3 mg/dL (0.2-1.0) Aspartate Amino Transf (AST/SGOT) 15 U/L (15-37) Alanine Aminotransferase (ALT/SGPT) 23 U/L (14-59) Alkaline Phosphatase 51 U/L (46-116) Total Protein 6.8 g/dL (6.4-8.2) Albumin 2.5 g/dL (3.4-5.0) Albumin/Globulin Ratio 0.6 (1.0-1.7) Test 08/25/19 11:14 08/25/19 16:17 08/25/19 20:31 08/26/19 07:44 Glucose (Fingerstick) 172 mg/dL (70-99) 178 mg/dL (70-99) 202 mg/dL (70-99) 210 mg/dL (70-99) Laboratory Tests Test 08/25/19 11:14 08/25/19 16:17 08/25/19 20:31 08/26/19 07:44 Glucose (Fingerstick) 172 mg/dL (70-99) 178 mg/dL (70-99) 202 mg/dL (70-99) 210 mg/dL (70-99) Brief Hospital Course Ms. Vidal is a 24 old admit for severe back pain, has UTI, treated for pyelo, then pain and headache on 08/24, [facility] Discharge Information Condition at Discharge: Improved Follow Up: Weeks Disposition/Orders: D/C to Home Scheduled Ciprofloxacin Hcl (Cipro) 250 Mg Tablet, 1 TAB PO BID for UTI for 8 Days, #16 Ref 0 Prescribed by: TERESA VITAL on 08/26/19 1038 Info (No Known Medications Prior To Admisstion) Each, 1 EACH MC DAILY for none, (Reported) Entered as Reported by: LIZ MARCOS on 08/24/191900 Last Action: New Order on 08/24/191900 by LIZ MARCOS Metformin Hcl (Metformin Hcl) 500 Mg Tablet, 500 MG PO BIDWMEALS for ANTI- DIABETIC, #60 Ref 0 Prescribed by: TERESA VITAL on 08/26/19 1038 Scheduled PRN Butalb/Acetaminophen/Caffeine (Afmgkbsh-Bzqbhaduurwnu-Yujr Cp) 1 Each Capsule, 1 CAP PO BID PRN for HEADACHE, #20 Ref 0 Prescribed by: TERESA VITAL on 08/26/19 1040 Patient Instructions Patient Instructions face to face discussion, < 30min Justicifation of Admission Dx: Justifications for Admission: Justification of Admission Dx: Yes Sepsis: Infection TERESA VITAL MD Aug 26, 2019 10:42
[2019-08-26 11:00] VITALS: BP 114/80
--- NOTE | 2019-08-26 11:21 | NUR ---
Pt left unit by wheelchair via private vehicle with brother. IV removed with no complications, VSS. Discharge paperwork discussed with pt and handouts sent with her as well. Belongings returned at time of discharge.
--- NOTE | 2019-08-26 14:06 | NUR ---
Late note. Pt discharged home with self care. RN advised no SW needs.
== END 2019-08-26 11:23 | disposition home or self-care (01) | DRG 872 ==
LOC: ER 11:23 → ED HOLD 14:24 → 4 NORTH 17:16
PROVIDERS: ADMIT Internal Medicine; ATTEND Internal Medicine
DX: A41.9 Sepsis, unspecified organism (principal); N10 Acute pyelonephritis; E11.9 Type 2 diabetes mellitus without complications; E66.9 Obesity, unspecified; R51 Headache; Z68.33 Body mass index [BMI] 33.0-33.9, adult; Z83.3 Family history of diabetes mellitus
CPT/HCPCS: 36415; 71045; 74177; 76856; 80053; 80307; 81001; 81025; 82010; 82962; 83036; 83605; 83690; 84484; 85007; 85025; 85610; 87040; 87086; 93005; 96361; 96374; 96375; 99285; J0696; J1650; J1815; J1885; J2405; J3010; J7030; Q9967; G0378